=== PATIENT | male | born 1990 | race African-American/Black ===

== ENCOUNTER 2019-06-03 05:29 | Emergency (ER) | payer MEDICAID ==
[~2019-06-03] VITALS: Ht 142.2 cm; Wt 99.8 kg
--- NOTE | 2019-06-03 05:29 | NUR ---
PT BIB [facility], PREBOOK. TAKEN TO CHAIR A
[2019-06-03 05:32] VITALS: BP 124/75
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
--- NOTE | 2019-06-03 05:38 | NUR ---
Dr. Yan examining patient.
[2019-06-03] MEDS ORDERED: IBUPROFEN 800 MG TAB PO ONE (05:50)
--- NOTE | 2019-06-03 06:08 | NUR ---
PT RETURN FROM XRAY
[2019-06-03 06:22] VITALS: BP 124/75
--- NOTE | 2019-06-03 06:22 | NUR ---
PATIENT [facility] PATIENT EXAMINED BY DR. HILARIO. PATIENT MEDICALLY CLEARED AND RELEASED IN CUSTODY IN STABLE CONDITION. ORIGINAL PRE-BOOK FORM GIVEN TO OFFICER GUILLERMO.
== END 2019-06-03 06:22 ==
LOC: MED 05:29
DX: S16.1XXA Strain of muscle, fascia and tendon at neck level, initial encounter (principal); M25.511 Pain in right shoulder; R03.0 Elevated blood-pressure reading, without diagnosis of hypertension; V49.88XA Car occupant (driver) (passenger) injured in other specified transport accidents, initial encounter; Z02.89 Encounter for other administrative examinations; Y93.89 Activity, other specified; Y92.89 Other specified places as the place of occurrence of the external cause; Y99.8 Other external cause status
CPT/HCPCS: 72040; 73030; 99284